=== PATIENT | female | born 1990 | race Caucasian/White ===

== ENCOUNTER 2016-09-10 19:55 | Emergency (ER) | payer OTHER ==
[~2016-09-10] VITALS: Ht 160 cm; Wt 74.2 kg
[~2016-09-10 19:55] MED LIST: Feosol PO; IBUPROFEN800 MG PO; Motrin PO; PERCOCET 5/31 TABLET PO
[2016-09-10 20:47] LABS: HEMATOCRIT 41.1 % (36.0-46.0); MCH 31.4 PG (29.0-34.0); MCHC 33.8 G/DL (30.0-36.0); MEAN PLAT.VOLUME 9.9 uM^3 (9.5-12.4); PLATELET COUNT 264 K/uL (156-360); RED BLOOD COUNT 4.42 M/uL (3.80-5.20); WHITE BLOOD COUNT 7.7 K/uL (4.1-10.2)
[2016-09-10 20:54] LABS: CHLORIDE 105 mEq/L (99-109); POTASSIUM 3.2 mEq/L (3.7-5.4); SODIUM 143 mEq/L (136-147)
[2016-09-10 20:56] LABS: GLUCOSE 116 mg/dL (70-99)
[2016-09-10 20:57] LABS: ANION GAP 13 MEQ/L (2-14)
[2016-09-10 21:00] LABS: GFR ESTIMATE (CALCULATED) > 59 mL/min/
[2016-09-10 21:01] LABS: UREA NITROGEN (BUN) 12 mg/dL (9-23)
[2016-09-10 21:08] LABS: TROP-I INTERPRETATION NEGATIVE; TROPONIN-I < 0.01 ng/mL (0.0-0.30)
[2016-09-10] MEDS ORDERED: LISINOPRIL-HCT1 EACH PO (21:29)
[2016-09-10 22:00] LABS: QUANTITATIVE HCG < 4.0 MIU/ML
[2016-09-10] MEDS ORDERED: NAPROXEN500 MG PO (23:41)
[2016-09-11 00:44] VITALS: BP 132/84
== END 2016-09-11 00:46 | disposition home or self-care (01) ==
LOC: EME 19:55
DX: R07.89 Other chest pain (principal); Z87.891 Personal history of nicotine dependence
CPT/HCPCS: 71020; 71275; 80048; 84484; 84702; 85027; 93005; 99281; 99285